=== PATIENT | male | born 1975 | race Hispanic/Latino ===

== ENCOUNTER 2017-04-20 17:28 | Outpatient (CLI) | payer BC | END 2017-04-20 17:29 | disposition home or self-care (01) | LOC: BICRAD 17:28 | PROVIDERS: ATTEND Chiropractor | DX: R05 Cough (principal) | CPT/HCPCS: 71020 ==

== ENCOUNTER 2018-03-19 16:02 | Outpatient (CLI) | payer BC ==
--- NOTE | 2018-03-19 19:24 | MRI ---
MRI LEFT SHOULDER WITHOUT CONTRAST: 03/19/18 HISTORY: M25.512 - pain in left shoulder. COMPARISON: None. FINDINGS: BICEPS TENDON: There is mild extra-articular biceps tenosynovial fluid. Moderate intra-articular tend inosis. Mild interstitial delamination. LABRUM: There is tearing of the anterior inferior labrum. Anterior superior labral tear is also prese nt. ROTATOR CUFF: Full thickness, full width supraspinatus tendon tear retracted to the mid humeral head from the footprint. Infraspinatus has mild tendinosis and interstitial delamination. Subscapularis al so has some mild deep undersurface partial tearing. MUSCLES: Multiple bulk is normal. BONES: There is type II acromion. Mild downsloping of the acromion near the subacromial space to 4 m m. IMPRESSION: 1. Moderate extra-articular biceps tenosynovitis with intra-articular tendinosis and interstitia l delamination. 2. Full thickness, full width supraspinatus tendon tear from the footprint retracted to mid hum eral head without significant muscle atrophy. 3. Mild tendinosis of the anterior fibers of the infraspinatus tendon with interstitial delamina tion. 4. Tear of the anterior inferior labrum extending to the anterior superior labrum. POS: OFF
== END 2018-03-19 16:03 | disposition home or self-care (01) ==
LOC: BICMRI 16:02
PROVIDERS: ATTEND Chiropractor
DX: M25.512 Pain in left shoulder (principal); M75.22 Bicipital tendinitis, left shoulder; M75.102 Unspecified rotator cuff tear or rupture of left shoulder, not specified as traumatic